=== PATIENT | male | born 1980 | race Caucasian/White ===

== ENCOUNTER 2017-10-19 17:35 | Emergency (ER) | payer BC ==
[~2017-10-19] VITALS: Ht 170.2 cm; Wt 67.6 kg
--- NOTE | 2017-10-19 17:35 | NUR ---
[id number] FROM [facility]'S OFFICE FOR ANXIETY, NAUSEA
[2017-10-19] MEDS ORDERED: LORAZEPAM INJ 2 MG/ML VIAL IM ONE (18:00)
[2017-10-19] MEDS ORDERED: LORAZEPAM INJ 2 MG/ML VIAL ONE (18:01)
--- NOTE | 2017-10-19 18:40 | NUR ---
HOUSING ASSISTANT PROPERTY MANAGER AT BEDSIDE
--- NOTE | 2017-10-19 19:11 | NUR ---
LAC #20 IV ACCESS. BLOOD SAMPLE COLLECTED SENT TO LAB
[2017-10-19 19:19] LABS: BASOPHILS # (AUTO) 0.5 /CMM (0.0-0.2); BASOPHILS % (AUTO) 4.6 % (0.0-2.0); EOSINOPHILS % (AUTO) 0.2 % (0.0-6.0); HEMATOCRIT 48 % (39-51); HEMOGLOBIN 16.5 g/dL (13.5-17.5); LYMPHOCYTES # (AUTO) 1.3 /CMM (0.8-4.8); LYMPHOCYTES % (AUTO) 12.6 % (20.0-44.0); MEAN CORPUSCULAR HEMOGLOBIN 34 PG (26.0-33.0); MEAN CORPUSCULAR HGB CONC 35 g/dl (31.0-36.0); MEAN CORPUSCULAR VOLUME 98 fL (80-96); MONOCYTES # (AUTO) 0.9 /CMM (0.1-1.30); MONOCYTES % (AUTO) 8.7 % (2.0-12.0); NEUTROPHILS # (AUTO) 7.2 /CMM (1.8-8.9); NEUTROPHILS % (AUTO) 73.9 % (43.0-81.0); PLATELET COUNT (AUTO) 305 /CMM (150-450); RDW COEFFICIENT OF VARIATION 14.2 (11.5-15.0); RED BLOOD CELL COUNT(AUTO) 4.87 MIL/uL (4.5-6.0); WHITE BLOOD COUNT (AUTO) 9.9 K/uL (4.3-11.0)
[2017-10-19 19:20] LABS: APPEARANCE,URINE Clear (CLEAR); BILIRUBIN,URINE Negative (NEGATIVE); BLOOD, URINE Negative Ery/uL (NEGATIVE); COLOR,URINE Yellow (YELLOW); KETONES,URINE >=160 (NEGATIVE); LEUKOCYTE ESTERASE ,URINE Negative (NEGATIVE); NITRITE, URINE Negative (NEGATIVE); PROTEIN,URINE 30 mg/dl (NEGATIVE); UGLUCOSE Negative (NEGATIVE); UROBILINOGEN,URINE 0.2 EU/dL (0.2)
[2017-10-19 19:36] LABS: ALANINE AMINOTRANSFERASE 112 U/L (12-78); ALBUMIN 3.8 g/dL (3.4-5.0); ALKALINE PHOSPHATASE 114 U/L (46-116); ASPARTATE AMINOTRANSFERASE 87 U/L (15-37); BILIRUBIN,DIRECT 0.1 mg/dL (0.0-0.2); BILIRUBIN,TOTAL 0.4 mg/dL (0.2-1.0); CARBON DIOXIDE 24 mmol/L (21-32); CHLORIDE 103 mmol/L (98-107); GLUCOSE 122 mg/dL (74-106); POTASSIUM 3.6 mmol/L (3.5-5.1); SODIUM SERUM 142 mmol/L (136-145); TOTAL PROTEIN, SERUM 8.2 g/dL (6.4-8.2); UREA NITROGEN, BLOOD 8 mg/dL (7-18)
[2017-10-19 19:39] LABS: TROPONIN I < 0.017 ng/mL (0.00-0.056)
[2017-10-19 19:41] LABS: BACTERIA,URINE Rare /HPF (None Seen); MUCUS,URINE Many /LPF (None Seen); RBC,URINE NONE SEEN /HPF (0-2); SQUAMOUS EPITHELIAL CELL,UR Few /HPF (None Seen); URINE AMORPHOUS URATE Few /HPF (None Seen); WBC,URINE 2-3/HPF /HPF (0-3)
[2017-10-19 19:43] LABS: INR 0.92 (0.85-1.15)
[2017-10-19 19:52] LABS: T4 (THYROXINE) 6.9 ug/dL (4.7-13.3); THYROID STIMULATING HORMONE 2.409 uIU/mL (0.358-3.74)
--- NOTE | 2017-10-19 20:33 | NUR ---
Aletha bourgeois in [facility] - 10/19/17 at 2034 by PAUL Patient is resting comfortably in bed. VSS
--- NOTE | 2017-10-19 20:34 | NUR ---
Patient is resting comfortably in bed. VSS
--- NOTE | 2017-10-19 21:09 | NUR ---
IV removed. Catheter intact and site benign. Pressure and 4x4 applied to site. No bleeding noted. Patient discharged to home in stable condition. Written and verbal after care instructions given. Patient verbalizes understanding of instruction. ambulatory with a steady gait
[2017-10-19 21:10] VITALS: BP 134/73
== END 2017-10-19 21:11 | disposition home or self-care (01) ==
LOC: ER 17:38
DX: F41.9 Anxiety disorder, unspecified (principal); Z88.0 Allergy status to penicillin
CPT/HCPCS: 36415; 71045-TC; 80048-TC; 80076-TC; 80305; 81000-TC; 84436-TC; 84443-TC; 84480; 84484-TC; 85025-TC; 85730-TC; A4606; J2060; Z7610

== ENCOUNTER 2017-10-26 23:14 | Emergency (ER) | payer BC ==
[~2017-10-26] VITALS: Ht 172.7 cm; Wt 90.7 kg
--- NOTE | 2017-10-27 | NUR ---
36 yo male bb ra for anxiety attack. patient denies drug or alcohol use. patient ambulated to er bed with steady gait, skin warm and dry, resp even and unlabored. awaiting orders from provider
[2017-10-27 00:07] LABS: BASOPHILS # (AUTO) 0.1 /CMM (0.0-0.2); BASOPHILS % (AUTO) 1.1 % (0.0-2.0); EOSINOPHILS # (AUTO) 0.1 /CMM (0.0-0.7); EOSINOPHILS % (AUTO) 0.9 % (0.0-6.0); HEMATOCRIT 47 % (39-51); HEMOGLOBIN 16.1 g/dL (13.5-17.5); LYMPHOCYTES # (AUTO) 2.2 /CMM (0.8-4.8); MEAN CORPUSCULAR HEMOGLOBIN 34 PG (26.0-33.0); MEAN CORPUSCULAR HGB CONC 34 g/dl (31.0-36.0); MEAN CORPUSCULAR VOLUME 100 fL (80-96); NEUTROPHILS # (AUTO) 6.7 /CMM (1.8-8.9); PLATELET COUNT (AUTO) 271 /CMM (150-450); RDW COEFFICIENT OF VARIATION 14.7 (11.5-15.0); RED BLOOD CELL COUNT(AUTO) 4.69 MIL/uL (4.5-6.0); WHITE BLOOD COUNT (AUTO) 10.1 K/uL (4.3-11.0)
[2017-10-27 00:11] LABS: APPEARANCE,URINE CLEAR (CLEAR); BILIRUBIN,URINE NEGATIVE (NEGATIVE); BLOOD, URINE NEGATIVE Ery/uL (NEGATIVE); COLOR,URINE YELLOW (YELLOW); KETONES,URINE NEGATIVE (NEGATIVE); LEUKOCYTE ESTERASE ,URINE NEGATIVE (NEGATIVE); NITRITE, URINE NEGATIVE (NEGATIVE); PH,URINE 6.5 (5.0-8.0); PROTEIN,URINE NEGATIVE (NEGATIVE); UGLUCOSE NEGATIVE (NEGATIVE); UROBILINOGEN,URINE 0.2 EU/dL (0.2)
[2017-10-27 00:46] LABS: CALCIUM, SERUM 9.4 mg/dL (8.5-10.1); CREATININE 0.8 mg/dL (0.6-1.3); POTASSIUM 3.3 mmol/L (3.5-5.1)
[2017-10-27 00:51] LABS: BILIRUBIN,DIRECT 0.1 mg/dL (0.0-0.2); BILIRUBIN,TOTAL 0.5 mg/dL (0.2-1.0); TOTAL PROTEIN, SERUM 8.6 g/dL (6.4-8.2)
[2017-10-27 02:38] VITALS: BP 144/96
--- NOTE | 2017-10-27 02:39 | NUR ---
Patient discharged to home in stable condition. Written and verbal after care instructions given. Patient verbalizes understanding of instruction. patient ambulatory with a steady gait VITAL SIGNS WITHIN NORMAL LIMITS.
== END 2017-10-27 02:39 | disposition home or self-care (01) ==
LOC: ER 23:15
DX: F41.9 Anxiety disorder, unspecified (principal); F10.129 Alcohol abuse with intoxication, unspecified; F17.200 Nicotine dependence, unspecified, uncomplicated; R41.82 Altered mental status, unspecified; Z88.0 Allergy status to penicillin
CPT/HCPCS: 36415; 70450; 80048; 80076; 80305; 81001; 85025; 99285; A4606; G0480; Z7610; 81000-TC